=== PATIENT | male | born 1990 | race Caucasian/White ===

== ENCOUNTER 2020-04-05 15:26 | Emergency (ER) | payer OTHER ==
[2020-04-05 16:36] VITALS: BP 140/90; PULSE 78
[2020-04-05] MEDS ORDERED: Lidocaine 1% with EPINEPHrine 1:100,000 20 ML MDV INJECT ONE (16:51)
[2020-04-05] MEDS ORDERED: Bacitracin Oint 1 GM U/D Packet TOP ONE (17:23)
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
== END 2020-04-05 17:32 | disposition home or self-care (01) ==
LOC: MW.ED 15:26
DX: S51.812A Laceration without foreign body of left forearm, initial encounter (principal); F17.210 Nicotine dependence, cigarettes, uncomplicated; W26.8XXA Contact with other sharp object(s), not elsewhere classified, initial encounter
CPT/HCPCS: 12002; 99282